=== PATIENT | female | born 1995 | race Caucasian/White ===

== ENCOUNTER 2017-11-24 07:04 | Emergency (ER) | payer MEDICAID, OTHER ==
[~2017-11-24] VITALS: Ht 175.3 cm; Wt 127.0 kg
[~2017-11-24 07:04] MED LIST: HYDR1TAB; [UNRECOGNIZED DRUG - REMARK]
[2017-11-24 07:05] VITALS: BP 110/64
== END 2017-11-24 07:36 | disposition home or self-care (01) ==
LOC: ER 07:06
DX: H66.92 Otitis media, unspecified, left ear (principal); F10.10 Alcohol abuse, uncomplicated
CPT/HCPCS: A4606; Z7610

== ENCOUNTER 2017-12-04 19:20 | Emergency (ER) | payer OTHER ==
[~2017-12-04] VITALS: Ht 167.6 cm; Wt 127.0 kg
[2017-12-04 19:31] VITALS: BP 147/98
== END 2017-12-04 19:54 | disposition home or self-care (01) ==
LOC: ER 19:22
DX: H65.03 Acute serous otitis media, bilateral (principal)
CPT/HCPCS: A4606; Z7610